=== PATIENT | male | born 1980 | race Caucasian/White ===

== ENCOUNTER 2017-09-12 05:54 | Emergency (ER) | payer SELFPAY ==
--- NOTE | 2017-09-12 06:17 | EDM.PDOC ---
ED HPI GENERAL MEDICAL PROBLEM - General Chief Complaint: Headache Stated Complaint: RIGHT SIDE HEAD PAIN Time Seen by Provider: 09/12/17 06:04 - History of Present Illness INITIAL COMMENTS - FREE TEXT/NARRATIVE: HISTORY AND PHYSICAL: History of present illness: The patient is a healthy 36-year-old male with no stated medical history who presents with complaints of persistent right-sided headache since he hit his head in a swimming pool one week ago. The patient says that he dove into a pool and hit the bottom of it with his head but did not pass out or blackout and did not seek treatment at that time. He had no neck pain no back pain and no neurologic deficits tingling or weaknesses in extremities but he had a persistent headache that started right after the injury and has continued. He has been taking excessive amounts of ibuprofen over the last 24 hours and is concerned that there is something going on and wanted evaluation. He is concerned that he has something intracranially that is causing the headache. He has only tried ibuprofen and no other agents and is not doing any other symptomatic care such as heat ice or other treatments. He has had no nausea no vomiting no dizziness or lightheadedness no chest pain or shortness of breath. He is eating and drinking normally. When I specifically asked about any neck pain or spasm the patient says that there is none. Review of systems: As per history of present illness and below otherwise all systems reviewed and negative. Past medical history: As per history of present illness and as reviewed below otherwise noncontributory. Surgical history: As per history of present illness and as reviewed below otherwise noncontributory. Social history: No reported history of drug or alcohol abuse. Family history: As per history of present illness and as reviewed below otherwise noncontributory. Physical exam: General: Well-developed well-nourished man who is nontoxic and vital signs were noted by me. He ambulated into the ED without any distress or ataxia. HEENT: Atraumatic, normocephalic, on palpation there is no soft tissue swelling of the scalp on the right side no palpable bony defects and no areas of discrete tenderness, pupils reactive, negative for conjunctival pallor or scleral icterus, mucous membranes moist, throat clear, neck supple, nontender, trachea midline. TMs are normal bilaterally and there are no midline step-offs in his defects of the cervical spine Lungs: Clear to auscultation, breath sounds equal bilaterally, chest nontender. Heart: S1S2, regular in rhythm no overt murmurs Abdomen: Soft, nondistended, nontender. NABS Pelvis: Deferred Genitourinary: Deferred. Rectal: Deferred. Extremities: Atraumatic, full range of motion without defects or deficits Neurovascular unremarkable. Neuro: Awake, alert, oriented. Cranial nerves II through XII unremarkable. Cerebellum unremarkable. Motor and sensory unremarkable throughout. Exam nonfocal. Back: There are no midline step-offs tenderness defects of the thoracic or lumbar spine and no posterior rib tenderness Diagnostics: CT scan of the head Therapeutics: Impression: Persistent headache status post closed head injury/mild concussion Definitive disposition and diagnosis as appropriate pending reevaluation and review of above. headache Pain Score (Numeric/FACES): 10 - Related Data Allergies Allergy/AdvReac Type Severity Reaction Status Date / Time Penicillins Allergy Cannot Verified 09/12/17 06:24 Remember Home Meds: Home Meds . [No Known Home Meds] 09/12/17 [History] ED ROS GENERAL - Review of Systems Review Of Systems: ROS reveals no pertinent complaints other than HPI. ED EXAM, GENERAL - Physical Exam Exam: See Below (See dictation) Course - Vital Signs Last Recorded V/S: Last Vital Signs Temp 36.4 C 09/12/17 06:14 Pulse 76 09/12/17 06:14 Resp 18 09/12/17 06:14 BP 140/95 H 09/12/17 06:14 Pulse Ox 98 09/12/17 06:14 - Orders/Labs/Meds Orders: Active Orders 24 hr Category Date Time Status Head wo Cont [CT] Stat Exams 09/12/17 06:11 Taken Departure - Departure Time of Disposition: 06:43 Disposition: Home, Self-Care 01 Condition: Good Clinical Impression: Closed head injury Headache Qualifiers: Headache type: unspecified Headache chronicity pattern: unspecified pattern Intractability: not intractable Qualified Code(s): R51 - Headache Mild concussion Qualifiers: Encounter type: initial encounter Loss of consciousness presence/duration: without LOC Qualified Code(s): S06.0X0A - Concussion without loss of consciousness, initial encounter - Discharge Information Referrals: PCP,None [Primary Care Provider] - Forms: ED Department Discharge Additional Instructions: The following information is given to patients seen in the emergency department who are being discharged to home. This information is to outline your options for follow-up care. We provide all patients seen in our emergency department with a follow-up referral. The need for follow-up, as well as the timing and circumstances, are variable depending upon the specifics of your emergency department visit. If you don't have a primary care physician on staff, we will provide you with a referral. We always advise you to contact your personal physician following an emergency department visit to inform them of the circumstance of the visit and for follow-up with them and/or the need for any referrals to a consulting specialist. The emergency department will also refer you to a specialist when appropriate. This referral assures that you have the opportunity for followup care with a specialist. All of these measure are taken in an effort to provide you with optimal care, which includes your followup. Under all circumstances we always encourage you to contact your private physician who remains a resource for coordinating your care. When calling for followup care, please make the office aware that this follow-up is from your recent emergency room visit. If for any reason you are refused follow-up, please contact the [facility] emergency department at and ask to speak to the emergency department charge nurse. [facility] Primary care- Internal Medicine and Family [address] [address] Please use [id number] medications in the proper doses at the proper intervals as we discussed and do not take excessive amounts of any over-the- counter medication. You may add the tramadol you have been prescribed for breakthrough pain and only take this when you are at home. Use a heating pad on the neck muscles and try to do range of motion exercising with the head and neck. Please call and follow-up with your provider in the clinic over the next few days or contact one of ours for follow-up care and evaluation. Return to ER as needed and as discussed. - My Orders Last 24 Hours: My Active Orders 09/12/17 06:11 Head wo Cont [CT] Stat - Assessment/Plan Last 24 Hours: My Active Orders 09/12/17 06:11 Head wo Cont [CT] Stat
--- NOTE | 2017-09-12 17:13 | CT ---
EXAM DATE: 09/12/17 PATIENT'S AGE: 36 Patient: JC YUN Facility: [place], [place] Site . Site : 1980 Study: CT Head [id number]/[id number] 6:29:25 AM Ordering Physician: Alvin Dolan Final Report: INDICATION: Recent head injury. Headache. TECHNIQUE: Noncontrast axial images through the head. Sagittal and coronal reconstructions. COMPARISON: None. FINDINGS: There is no abnormal intracranial mass effect or midline shift. No intracranial hemorrhage. No areas of abnormal attenuation are seen within the brain. CSF spaces are age-appropriate. No skull fracture. There is mild mucosal thickening in the right maxillary sinus. No air-fluid level. Mastoids and middle ear cavities are clear. IMPRESSION: No CT evidence of an acute intracranial abnormality. Dictated by Noah Hernandez MD @ 09/12/2017 6:42:48 AM Please note that all CT scans at this facility use dose modulation, iterative reconstruction, and/or weight-based dosing when appropriate to reduce radiation dose to as low as reasonably achievable. Dictated by: Noah Hernandez MD @ 09/12/2017 06:42:54 (Electronic Signature) Report Signed by Proxy. [facility]
== END 2017-09-12 06:57 | disposition home or self-care (01) ==
LOC: MW.ED 05:54
DX: S06.0X0A Concussion without loss of consciousness, initial encounter (principal); Z88.0 Allergy status to penicillin; W16.92XA Jumping or diving into unspecified water causing other injury, initial encounter
CPT/HCPCS: 70450; 70450-26; 99283; 99283-25